=== PATIENT | female | born 1990 | race Caucasian/White ===

== ENCOUNTER 2017-01-12 04:20 | Emergency (ER) | payer BC, OTHER ==
[2017-01-12] MEDS ORDERED: Tetracaine 0.5% 2 ML Bottle EYELF ONE (04:27)
[2017-01-12 04:30] VITALS: BP 111/68
[2017-01-12] MEDS ORDERED: Erythromycin Base 0.5% Ophth Oint 3.5 GM Tube EYELF ONE (05:08)
--- NOTE | 2017-01-12 05:14 | EDM.PDOC ---
ED HPI GENERAL MEDICAL PROBLEM - General Chief Complaint: Eye Problems Stated Complaint: Left eye pain Time Seen by Provider: 01/12/17 04:57 Source of Information: Reports: Patient History Limitations: Reports: No Limitations - History of Present Illness INITIAL COMMENTS - FREE TEXT/NARRATIVE: FB left eye, noted around 1:30am. [facility] flushed eye twice. Still feels like there is something in the eye. Vision is unchanged. No other complaint. Treatments MANAGER TECHNICAL: Reports: Other (see below) Other Treatments MANAGER TECHNICAL: flushing of eye Left Eye Pain Score (Numeric/FACES): 8 - Related Data Allergies Allergy/AdvReac Type Severity Reaction Status Date / Time No Known Allergies Allergy Verified 01/01/14 08:55 Past Medical History - Past Health History Medical/Surgical History: Denies Medical/Surgical History - Infectious Disease History Infectious Disease History: Reports: Chicken Pox Social & Family History - Tobacco Use Smoking Status *Q: Current Some Day Smoker Years of Tobacco use: 4 Packs/Tins Daily: 0.5 - Caffeine Use Caffeine Use: Reports: Soda - Recreational Drug Use Recreational Drug Use: No ED ROS GENERAL - Review of Systems Review Of Systems: ROS reveals no pertinent complaints other than HPI. HEENT: Denies: Vision Change ED EXAM GENERAL W FULL EYE - Physical Exam Exam: See Below Exam Limited By: No Limitations General Appearance: Alert, WD/WN, Other (uncomfortable) Eye Exam: Left Eye: Conjunctival Injection, Corneal Abrasion, Bilateral Eye: EOMI, PERRL Visual Acuity (R) 20/: 20 Visual Acuity (L) 20/: 20 With Correction: Yes Eyelids: Right: Normal Appearance, Left: Edema, Erythema, Lid Everted for Exam Conjunctiva & Sclera: Right: Normal Appearance, Left: Injected Cornea Exam: Right: Normal Appearance, Left: Corneal Abrasion, Examined with Flourescein Extraocular Movements: Bilateral: Intact Pupils: Normal Accommodation Pupillary Size: Bilateral: 6 mm Pupillary Reaction: Bilateral: Brisk Anterior Chamber: Bilateral: Normal Appearance Nose: No: Nasal Swelling, Nasal Drainage Throat/Mouth: Normal Lips, Normal Voice, No Airway Compromise Head: Atraumatic, Normocephalic Neck: Supple Respiratory/Chest: No Respiratory Distress Neurological: Alert, Oriented, Normal Cognition, Normal Gait Psychiatric: Normal Affect, Normal Mood Skin Exam: Warm, Dry, Intact, Normal Color ED EYE w/ Add Procedure - Eye Procedure Alcaine Drops Administered: Yes Antibiotic Oinment/Drps Admin: right eye Course - Vital Signs Last Recorded V/S: Last Vital Signs Temp 36.8 C 01/12/17 04:29 Pulse 94 01/12/17 04:29 Resp 18 01/12/17 04:29 BP 111/68 01/12/17 04:29 Pulse Ox 100 01/12/17 04:29 - Orders/Labs/Meds Meds: Medications Discontinued Medications Generic Name Dose Route Start Last Admin Trade Name Antonella PRN Reason Stop Dose Admin Erythromycin 1 gm 01/12/17 05:08 Erythromycin 0.5% Ophth Oint EYELF 01/12/17 05:09 ONETIME ONE Tetracaine 2 ml 01/12/17 04:27 01/12/17 04:31 Pontocaine 0.5% Ophth Drops EYELF 01/12/17 04:28 2 drop ASDIRECTED ONE Administration - Re-Assessments/Exams Free Text/Narrative Re-Assessment/Exam: 01/12/17 05:20 Abrasion noted at 12 o'clock on cornea. No FB noted during eye exam on eye or imbedded in eyelid. Suspect that irrigation at [facility] able to remove it. Erythromycin ointment ordered. Patient taken off work for 24 hours while corneal abrasion heals. If discomfort persists she is to follow up with her local eye provider for re -evaluation. Departure - Departure Time of Disposition: 05:13 Disposition: Home, Self-Care 01 Condition: good Clinical Impression: Corneal abrasion Qualifiers: Encounter type: initial encounter Laterality: left Qualified Code(s): S05.02XA - Injury of conjunctiva and corneal abrasion without foreign body, left eye, initial encounter - Discharge Information Instructions: Eye Foreign Body, [facility] Referrals: Tyrese Wilson [employer] CONSULTANT [Primary Care Provider] - Forms: ED Department Discharge Additional Instructions: No work for 24 hours. Apply ointment 1/4 inch to lower inside lid of left eye 4 times a day for 3-4 days while abrasion heals. If eye is still significantly uncomfortable follow up with your local eye provider late this afternoon or early tomorrow morning for re-examination.
== END 2017-01-12 05:10 | disposition home or self-care (01) ==
LOC: LL.ED 04:20
DX: S05.02XA Injury of conjunctiva and corneal abrasion without foreign body, left eye, initial encounter (principal); F17.210 Nicotine dependence, cigarettes, uncomplicated; X58.XXXA Exposure to other specified factors, initial encounter
CPT/HCPCS: 65220; 99283; A9270